=== PATIENT | female | born 1970 | race Caucasian/White ===

== ENCOUNTER → 2017-09-20 | Outpatient (CLI) | payer OTHER ==
[~2017-09-20] MED LIST: LEVO125T PO
== END | disposition home or self-care (01) ==
LOC: CFH 14:31
PROVIDERS: ATTEND Internal Medicine
DX: N64.4 Mastodynia (principal); N60.02 Solitary cyst of left breast; Z80.3 Family history of malignant neoplasm of breast
CPT/HCPCS: 76642; 77066

== ENCOUNTER 2019-09-30 08:00 | Outpatient (CLI) | payer OTHER | END 2019-09-30 23:59 | disposition home or self-care (01) | LOC: STAR 08:00 → EDSTATUS 10-03 09:30 | PROVIDERS: ATTEND Surgery | DX: Z01.818 Encounter for other preprocedural examination (principal); Z11.59 Encounter for screening for other viral diseases | CPT/HCPCS: 36415; 87635 ==

== ENCOUNTER 2020-04-15 10:11 | Emergency (ER) | payer OTHER ==
[~2020-04-15] VITALS: Ht 182.9 cm; Wt 155.6 kg
[2020-04-15] MEDS ORDERED: ACETAMINOPHEN 325 MG TABLET ONE (10:43)
[2020-04-15] MEDS ORDERED: KETOROLAC 30 MG/1 ML ONE (10:43)
--- NOTE | 2020-04-15 10:56 | NUR ---
XRAY COMPLETED AT BS. WARM BLANKET PROVIDED, PT ASSISTED WITH GETTING INTO GOWN. MEDS GIVEN PER ERP ORDER FOR 4/10 R ANKLE AND R CALF PAIN. US AT BS. CALL LIGHT WITHIN REACH.
[2020-04-15] MEDS ORDERED: ACETAMINOPHEN 325 MG TABLET PO ONE (11:00)
[2020-04-15] MEDS ORDERED: KETOROLAC 30 MG/1 ML IM ONE (11:00)
--- NOTE | 2020-04-15 11:31 | NUR ---
ALL RESULTS BACK, PT FOR RECHECK.
[2020-04-15 11:35] VITALS: BP 114/88
== END 2020-04-15 12:24 | disposition home or self-care (01) ==
LOC: ED 11:00
DX: S93.401A Sprain of unspecified ligament of right ankle, initial encounter (principal); S76.811A Strain of other specified muscles, fascia and tendons at thigh level, right thigh, initial encounter; K21.9 Gastro-esophageal reflux disease without esophagitis; E66.01 Morbid (severe) obesity due to excess calories; Z68.42 Body mass index [BMI] 45.0-49.9, adult; Z90.710 Acquired absence of both cervix and uterus; Z88.6 Allergy status to analgesic agent; Z88.4 Allergy status to anesthetic agent; Z88.0 Allergy status to penicillin; W18.30XA Fall on same level, unspecified, initial encounter; Y93.89 Activity, other specified; Y92.410 Unspecified street and highway as the place of occurrence of the external cause; Y99.8 Other external cause status
CPT/HCPCS: 73610; 93971; 96372; 99284; J1885

== ENCOUNTER 2020-07-09 11:37 | Emergency (ER) | payer OTHER ==
[~2020-07-09] VITALS: Ht 185.4 cm; Wt 150.0 kg
--- NOTE | 2020-07-09 12:05 | NUR ---
THIS IS A 50 YEAR OLD FEMALE WITH HX OF ALY'S DISEASE. PT HAD RECENT ACHELLIES SURGERY TO RIGHT LEG. PT DENIES SMOKING OR CONTROL MEASURES SHE HAS COMPLETE HYSTERECTOMY. PT STATES SHE WAS AT PHYSICAL THERAPY THIS AM AND TOLD THE THERAPIST ABOUT THIS PAIN IN HER HIP THAT INCREASES WITH MOVEMENT AND IS NONE RADIATING IN NATURE PLUS THE SWELLING TO THE EXTEMITY. THERAPIST WAS CONCERNED AND SENT PT TO THE ER. PT PRESENTS WITH RIGHT LEG SWOLLEN GREATER THAN LEFT, DISTAL PULSES INTACT. PT PLACED ON NIBP AND O2 MONITORING AT THIS TIME.
--- NOTE | 2020-07-09 12:30 | NUR ---
US AT BEDSIDE.
--- NOTE | 2020-07-09 12:36 | NUR ---
Recieved report from Jasper BRIGHT
--- NOTE | 2020-07-09 13:46 | NUR ---
Pt positioned for comfort and provided a warm blanket, VSS, NADN. Family member at bedside
[2020-07-09 13:47] VITALS: BP 128/88
== END 2020-07-09 13:34 | disposition home or self-care (01) ==
LOC: ED 13:26
DX: M79.661 Pain in right lower leg (principal); M79.651 Pain in right thigh; K21.9 Gastro-esophageal reflux disease without esophagitis; E66.01 Morbid (severe) obesity due to excess calories; G40.909 Epilepsy, unspecified, not intractable, without status epilepticus; Z68.41 Body mass index [BMI] 40.0-44.9, adult
CPT/HCPCS: 99284